=== PATIENT | female | born 1940 | race Caucasian/White ===

== ENCOUNTER → 2018-06-26 | Outpatient (CLI) | payer OTHER ==
[~2018-06-26] VITALS: Ht 162.6 cm; Wt 81.2 kg
[~2018-06-26] MED LIST: CRESTOR20 MG PO; LORAZEPAM 2MG TA2 M1 PO; OMEPRAZOLE40 MG PO; SYNTHROID25 MC1 PO; TOPROL XL50 MG PO; VENLAFAXINE HC150 M1 PO; VENTOLIN HFA 1818 GM INH
--- NOTE | ~2018-06-26 | PATH ---
[facility] [address] [place] [address] PATHOLOGY RPT PROCEDURE Name: ALESSANDRO ARMENTA Carmencita Room #: [facility] M.R.#: [id number] Admission: 06/26/18 Date of : 44 Discharge: Report #: [id number] Path Case #: [id number] [facility] Accession Number: [id number] . 01 Material submitted: . BX OF GASTRITIS R/O H. PYLORI . 01 Clinical history: . Pre-OP DX: GERD, dysphagia Post-OP DX: Gastritis . 02 Diagnosis: Gastric mucosa, gastritis, endoscopic biopsy: - Mild reactive gastropathy. - Negative for intestinal metaplasia or atrophy. - Negative for Helicobacter pylori (properly controlled immunohistochemical stain performed). (IUV:front end application developer; 06/27/2018) MBR/06/27/2018 . 02 Electronically signed: . Yanique Roth MD, Pathologist NPI- [id number] . 01 Gross description: . Received in formalin labeled "Alessandro Armenta, BX of gastritis, rule out H. pylori," are 4 segments of fowler soft tissue measuring 1.1 x 0.8 x 0.2 cm in aggregate dimensions and ranging from 0.2 to 0.5 cm in maximum dimension. The specimen is submitted entirely in cassette A1. (TSD; 06/26/2018) TOB/TOB . 02 Pathologist provided ICD-10: K31.9 . 02 CPT . 494992, J49103 Specimen Comment: A courtesy copy of this report has been sent to Specimen Comment: [phone], . Specimen Comment: Report sent to / DR ROA Performed at: [address] [id number] MD Chris Cunningham MD Phone: [phone] Performed at: [address] [id number] [address] [address] PATHOLOGY RPT PROCEDURE Name: ALESSANDRO ARMENTA Room #: REG [facility] Raymond.#: [id number] Admission: 06/26/18 Date of : 44 Discharge: Report #: [id number] Path Case #: [id number] MD Yanique Roth MD Phone: [phone]
--- NOTE | ~2018-06-26 | P ---
[facility] [place] [address] PROCEDURE REPORT Name: ALESSANDRO BASSETT Room #: [facility]#: [id number] Admission: 06/26/18 Attend Phys: Romeo Morrison MD Discharge: Date of : 44 Report #: [id number] THIS REPORT FOR: //name// CC: Romeo Morrison OUTPATIENT UPPER ENDOSCOPY REPORT BRIEF HISTORY: The patient is a 78-year-old woman with epigastric burning pain in spite of using omeprazole 40 mg daily. She also has intermittent solid food dysphagia in particular for bread. PREOPERATIVE DIAGNOSES: Epigastric pain and dysphagia. POSTOPERATIVE DIAGNOSES: 1. Moderate erosive gastritis. 2. Solid food dysphagia. MEDICATIONS: Deep sedation with propofol per Anesthesia. SPECIMEN: Biopsies of gastritis. ESTIMATED BLOOD LOSS: 3 mL. PROCEDURE: EGD with biopsy, Medeiros dilation. FINDINGS: Prior to propofol sedation, procedure of upper endoscopy was discussed with the patient as well as potential risks and its complications. She indicates she understands and desires to proceed. DESCRIPTION OF PROCEDURE: With the patient in left lateral decubitus position, the Olympus video endoscope was inserted in the cervical esophagus under direct vision without difficulty. Examination of this organ through its entire length revealed normal esophageal mucosa down the squamocolumnar junction. No evidence of ulcers, erosions or esophagitis. No Rosen's mucosa was seen. Hiatus hernia was not seen. The scope was then advanced into the stomach, which was examined on end view as well as retroflexed views. There was a pattern of diffuse gastritis and scattered erosions were seen. No ulcers were identified. Upon retroflexion, no mass lesions were seen. Biopsies obtained of the gastritis. The pylorus, duodenal bulb and postbulbar duodenal sweep were inspected and noted to be unremarkable. At that point, scope was slowly withdrawn and careful circumferential views confirmed the above findings. The patient tolerated the procedure well. Following procedure, she was subsequently dilated with passage of a 50-[place] Medeiros dilator. There was no resistance. CONDITION OF THE PATIENT UPON DISCHARGE: Following procedure, the patient [facility] [address] [place] [address] PROCEDURE REPORT Name: ALESSANDRO BASSETT Room #: [facility]#: [id number] Admission: 06/26/18 Attend Phys: Romeo Morrison MD Discharge: Date of : 44 Report #: [id number] drowsy. She will be discharged to home when fully ambulatory. INSTRUCTIONS TO THE PATIENT AND FAMILY AT THE TIME OF DISCHARGE: She has dyspeptic symptoms with epigastric burning in spite of the fact she is on omeprazole 40 mg daily. She notes that it does help, but still has symptoms. We will have her increase her omeprazole to 40 mg twice daily for 6-8 weeks and then try to reduce thereafter. She does have erosions, which may be a result of use of aspirin. She was dilated as described. A definite stricture was not seen, but she was dilated based on symptoms. If she has benefit from dilation and has recurrent symptoms in the future, she may return at a later date for a repeat dilation. <ELECTRONICALLY SIGNED> By: Romeo Morrison MD 06/28/18 [id number] [id number] Romeo Morrison MD /nt
== END | disposition home or self-care (01) ==
LOC: GI 08:37
DX: K31.9 Disease of stomach and duodenum, unspecified (principal); K21.9 Gastro-esophageal reflux disease without esophagitis; F41.9 Anxiety disorder, unspecified; E78.00 Pure hypercholesterolemia, unspecified; E03.9 Hypothyroidism, unspecified; Z90.710 Acquired absence of both cervix and uterus; Z90.49 Acquired absence of other specified parts of digestive tract; Z98.890 Other specified postprocedural states; Z79.899 Other long term (current) drug therapy; Z88.0 Allergy status to penicillin; Z88.2 Allergy status to sulfonamides; Z88.6 Allergy status to analgesic agent
CPT/HCPCS: 62110; 62900